=== PATIENT | male | born 1975 | race Caucasian/White ===

== ENCOUNTER 2016-08-06 22:41 | Emergency (ER) | payer MEDICARE, MEDICAID ==
[~2016-08-06 22:41] MED LIST: ACTIGALL300 M1 PO; AFRIN30 ML; AMOXICILLIN500 M1 PO; ASPIR 8181 M1 PO; ATENOLOL25 M1 PO; BACTRIM DS1 TAB PO; CALCITRIOL0.5 MC1 PO; CALCITRIOL1 MCG/ML IV; CALCIUM CARBON500 M2 PO; CALCIUM CARBONATE PO; CALCIUM500 M1 PO; CARNITOR PO; CIPRODEX OTIC7.5 M1 LEFT EAR; CLARITIN10 M6 PO; COLACE100 M1 PO; COREG6.25 MG PO; COUMADIN5 M2 PO; ELIQUIS5 M1 PO; FERROUS GLUCONATE IV; GENTAK5 M1 OP; HUMALOG; HUMALOG100 U/ML SC; HUMALOG100 UNITS/ SC; LANTUS100 UNITS/ SC; LASIX PO; LASIX20 M1 PO; LASIX80 M1 PO; LASIX80 MG PO; LEVAQUIN500 M1 PO; LOPRESSOR25 MG/TA7 PO; MECLIZINE HCL25 M3 PO; METOPROLOL PO; METOPROLOL TART25 MG PO; MUCINEX600 M1 PO; NASAL SPRAY30 M3 NS; NASAL SPRAY30 ML NS; NOVOLOG MI100 UNITS/ SC; OMEPRAZOLE20 M3 PO; OYSTER SHELL C500 M1 PO; PARICALCITOL1 MC1 PO; PAROXETINE HCL10 M2 PO; PAROXETINE HCL20 M2 PO; PAXIL10 M1 PO; PAXIL20 M1 PO; PAXIL20 MG PO; PERCOCET 5-3251 EACH PO; PHOSLO667 M1 PO; PHOSLYRA667 MG/5 M PO; PHOSLYRA667 MG/51 PO; POLYTRIM EYE DR10 M1 OP; PREDNISONE20 M1 PO; PRILOSEC20 M1 PO; PRILOSEC20 MG PO; PROAIR HFA8.5 GM INH; PROMETHAZINE; PROMETHAZINE HC25 M3 PO; RENAL CAPS SOFTG1 M1 PO; RENVELA PO; RENVELA800 M1 PO; ROCALTROL0.5 MC1 PO; ROCALTROL0.5 MC2 PO; SENSIPAR30 MG PO; TAMIFLU30 M1 PO; TOPROL XL25 M1 PO; TUMS PO; TYLENOL325 M2 PO; VALIUM5 M1 PO; VANCOMYCIN; VENOFER100 MG/5 M IV; ZOFRAN ODT4 MG PO; ZOFRAN8 M1 PO; [UNRECOGNIZED DRUG - CODE] PO; [UNRECOGNIZED DRUG - OTHER] PO; [UNRECOGNIZED DRUG - OTHER] SC
[2016-08-06] MEDS ORDERED: [UNRECOGNIZED DRUG - REMARK] (23:01)
[2016-08-29] MEDS ORDERED: REQUIP1 M1 (23:18)
== END 2016-08-06 23:40 ==
LOC: EDMED 22:41
DX: S90.512A Abrasion, left ankle, initial encounter (principal); E11.22 Type 2 diabetes mellitus with diabetic chronic kidney disease; N18.9 Chronic kidney disease, unspecified; Z79.01 Long term (current) use of anticoagulants; Z79.84 Long term (current) use of oral hypoglycemic drugs; W22.8XXA Striking against or struck by other objects, initial encounter; Y92.019 Unspecified place in single-family (private) house as the place of occurrence of the external cause